=== PATIENT | male | born 1990 | race African-American/Black ===

== ENCOUNTER 2018-06-28 12:15 | Emergency (ER) | payer SELFPAY ==
[~2018-06-28] VITALS: Ht 170.2 cm; Wt 81.6 kg
[2018-06-28] MEDS ORDERED: PREDNISONE20 MG ORAL (12:38)
[2018-06-28] MEDS ORDERED: ALBUTEROL SULF8.5 GM INH (12:38)
--- NOTE | 2018-06-28 12:39 | Emergency Room Report ---
History of Present Illness General Chief Complaint: Upper Respiratory Illness Source: Patient Present Illness HPI 28-year-old male patient presents ER complaining of cough and wheezing times one day. Reports cough with sputum, denies hemoptysis. Reports wheezing during this time. Reports history of bronchitis, denies history of asthma. Reports that he has moved here from [place] 2 months ago, states that he had a breathing machine but did not bring it with him. Denies use of inhaler. Denies other acute symptoms. Denies fever, chest pain, shortness of breath, sore throat, abdominal pain. Denies vomiting. Denies smoking cigarettes. Allergies: Uncoded Allergies: PEANUT (Allergy, Unknown, 06/28/18) Patient History Past Medical History: see triage record Reviewed Nursing Documentation: PMH: Agreed; PSxH: Agreed Nursing Documentation-PMH Past Medical History: No History, Except For Review of Systems All Other Systems: negative except mentioned in HPI Physical Exam Vital Signs Date Time Temp Pulse Resp B/P (MAP) Pulse Ox O2 Delivery O2 Flow Rate FiO2 06/28/18 12:25 98.6 74 16 131/92 97 Room Air 98.6 Sp02 EP Interpretation: reviewed, normal General Appearance: well appearing, no apparent distress, alert, GCS 15, non- toxic Head: normocephalic, atraumatic Eyes: bilateral eye normal inspection, bilateral eye PERRL ENT: hearing grossly normal, normal pharynx, no angioedema, normal voice, TMs + canals normal, uvula midline, moist mucus membranes Neck: full range of motion Respiratory: lungs clear, normal breath sounds, no rhonchi, no respiratory distress, no accessory muscle use, speaking full sentences, wheezing Cardiovascular #1: regular rate, rhythm, no edema Musculoskeletal: back normal, digits/nails normal, gait/station normal, normal range of motion, non-tender Neurologic: alert, oriented x3, responsive, motor strength/tone normal, sensory intact Psychiatric: mood/affect normal Skin: no rash Lymphatic: no adenopathy Medical Decision Making PA Attestation Dr. Mcconnell is my supervising Physician whom patient management has been discussed with. Diagnostic Impression: Primary Impression: Bronchitis ER Course Pt presents to ED c/o cough and wheezing. DDX considered but are not limited to asthma, viral URI, bronchitis, pneumonia. Lungs show no rhonchi or rales, patient afebrile, suspicion for pneumonia at this time, does not require x-rays or imaging. no signs of hypoxia, patient without difficulty. VITAL SIGNS are WNL, patient is afebrile. Ordered breathing treatment and medication. ER COURSE Patient provided with prednisone. Albuterol/Atrovent breathing treatment provided. Following treatment patient states no longer having difficulty with breathing. Patient is resting comfortably in no acute distress. patient ok for discharge to home. ER precautions given. DISCHARGE: -Rx given for Prednisone. begin taking medication tomorrow, first dose provided in the ER. -Rx provided for Albuterol MDI. At this time pt is stable for d/c to home. Patient is resting comfortably in no acute distress, nontoxic appearing, able to answer questions without difficulty. Patient to take medications as instructed Will provide with patient care instructions and any necessary prescriptions. Care plan and follow-up instructions provided. Patient instructed to follow-up with primary care provider in 3 - 5 days. Patient questions asked and answered. Patient reports understanding and agreement to treatment plan. ER precautions given. Patient instructed to return to ER immediately for any new or worsening of symptoms including but not limited to increasing SOB, persistent fever. - Please note that this Emergency Department Report was dictated using [employer] technology software, occasionally this can lead to erroneous entry secondary to interpretation by the dictation equipment. Last Vital Signs Date Time Temp Pulse Resp B/P (MAP) Pulse Ox O2 Delivery O2 Flow Rate FiO2 06/28/18 12:25 98.6 74 16 131/92 97 Room Air 98.6 Status: improved Disposition: HOME, SELF-CARE Condition: Stable Scripts Albuterol Sulfate* (ALBUTEROL SULFATE MDI*) 8.5 Gm Hfa.aer.ad 2 PUFF INH Q6H, #1 INH 0 Refills Prov: Merlin Thomas 06/28/18 Prednisone* (PREDNISONE*) 20 Mg Tablet 40 MG ORAL DAILY for 4 Days, #8 TAB Prov: Merlin Thomas 06/28/18 Patient Instructions: Acute Bronchitis, [id number] Additional Instructions: Followup with primary care provider in 3 -5 days. Discuss need for further treatment and referral for breathing symptoms. Take medications as directed. OTC cough medications for cough symptoms as needed. Patient questions asked and answered. ER precautions given, patient instructed to return to ER immediately for any new or worsening of symptoms. Merlin Thomas Jun 28, 2018 12:39
[2018-06-28 12:43] VITALS: BP 131/92
[2018-06-28 12:45] VITALS: BP 131/92
[2018-06-28] MEDS ORDERED: Albuterol/Ipratropium 3ml neb HHN ONE (12:45)
== END 2018-06-28 12:45 | disposition home or self-care (01) ==
LOC: EMR 12:45
DX: J40 Bronchitis, not specified as acute or chronic (principal); Z91.010 Allergy to peanuts
CPT/HCPCS: 94664; 99284; J7512; J7620

== ENCOUNTER 2018-12-29 11:10 | Emergency (ER) | payer SELFPAY ==
[~2018-12-29] VITALS: Ht 170.2 cm; Wt 77.1 kg
[~2018-12-29 11:10] MED LIST: ALBUTEROL SULF8.5 GM INH; PREDNISONE20 MG ORAL
[2018-12-29] MEDS ORDERED: NKM (11:19)
[2018-12-29 11:23] VITALS: BP 130/85
--- NOTE | 2018-12-29 11:23 | NUR ---
ED Nurse Note: Pt present at ER c/o flu like symptoms. pt aao x4 and skin clean and intact. crossed eyes noted but without discoloration or drainage. Mild wheezing noted on all lungs bilaterally. pt denied pain but sinus depression.
[2018-12-29] MEDS ORDERED: ZYRTEC10 MG ORAL (11:37)
[2018-12-29] MEDS ORDERED: ALBUTEROL SULF8.5 GM INH (11:37)
[2018-12-29] MEDS ORDERED: FLONASE ALLERG9.9 ML NS (11:37)
[2018-12-29] MEDS ORDERED: PREDNISONE20 MG ORAL (11:37)
--- NOTE | 2018-12-29 11:37 | Emergency Room Report ---
History of Present Illness General Chief Complaint: Flu Like Symptoms Source: Patient Present Illness HPI 19-year-old male presents with urinary symptoms for 1 week. Says he has nasal congestion, sinus pressure, and some intermittent wheezing that is worse at night. She is a second Afrin and was initially having improvement of symptoms however left is no longer working. He has no other physicals at this time. Denies any current n/v/f/c/d, abd pain, back pain, neck pain, photophobia, phonophobia, CP, SOB or headache. Allergies: Uncoded Allergies: PEANUT (Allergy, Unknown, 06/28/18) Patient History Past Medical History: see triage record Past Surgical History: none Pertinent Family History: none Reviewed Nursing Documentation: PMH: Agreed; PSxH: Agreed Nursing Documentation-PMH Past Medical History: No History, Except For Review of Systems All Other Systems: negative except mentioned in HPI Physical Exam Vital Signs Date Time Temp Pulse Resp B/P (MAP) Pulse Ox O2 Delivery O2 Flow Rate FiO2 12/29/18 11:16 97.9 72 16 130/85 97 Room Air Sp02 EP Interpretation: reviewed, normal General Appearance: no apparent distress, alert, GCS 15, non-toxic Head: normocephalic, atraumatic Eyes: bilateral eye normal inspection, bilateral eye PERRL ENT: hearing grossly normal, normal pharynx, no angioedema, normal voice, TMs + canals normal Neck: full range of motion, supple/symm/no masses Respiratory: chest non-tender, lungs clear, normal breath sounds, speaking full sentences Cardiovascular #1: regular rate, rhythm, no edema Musculoskeletal: digits/nails normal, gait/station normal Neurologic: alert, oriented x3, responsive, motor strength/tone normal, sensory intact, speech normal Psychiatric: judgement/insight normal, memory normal, mood/affect normal, no suicidal/homicidal ideation Skin: normal color, no rash, warm/dry, well hydrated Medical Decision Making PA Attestation Dr. Graves my supervising physician with whom patient management has been discussed with. Diagnostic Impression: Primary Impression: Viral respiratory infection ER Course 28-year-old male with URI symptoms. On exam and history of nasal red and swollen he is got no sinus tenderness. I doubt that he has pneumonia although he does have intermittent wheezing his O2 sats are within normal and there is no egophony or rhonchi. His pharynx is within normal limits and shows no signs of hypoxia. He has no fever body aches or chills. He is afebrile. At this time the patient appears stable for discharge home without any emergent exam findings. Will provide printed patient care instructions, and any necessary prescriptions. Care plan and follow up instructions have been discussed with the patient prior to discharge. Last Vital Signs Date Time Temp Pulse Resp B/P (MAP) Pulse Ox O2 Delivery O2 Flow Rate FiO2 12/29/18 11:16 97.9 72 16 130/85 97 Room Air Status: unchanged Disposition: HOME, SELF-CARE Condition: Stable Scripts Cetirizine Hcl* (ZYRTEC*) 10 Mg Tablet 10 MG ORAL DAILY, #14 TAB 0 Refills Prov: Dara Pierce 12/29/18 Prednisone* (PREDNISONE*) 20 Mg Tablet 20 MG ORAL DAILY for 5 Days, #5 TAB Prov: Dara Pierce 12/29/18 Fluticasone Propionate (Flonase Allergy Relief) 9.9 Ml [place].susp 2 SPRAYS NS DAILY for 7 Days, #10 ML Prov: Dara Pierce 12/29/18 Albuterol Sulfate* (ALBUTEROL SULFATE MDI*) 8.5 Gm Hfa.aer.ad 2 PUFF INH Q4H, #1 INH 0 Refills Prov: Dara Pierce 12/29/18 Patient Instructions: Sinusitis, Adult, Viral Respiratory Infection Additional Instructions: Take medication as directed. Drink plenty of fluids which include Gatorade and water. Get plenty of rest. Avoid taking medications on an empty stomach. If you have cough avoid dairy and cold beverages. If you have a fever, headache or body aches please take [id number] tylenol/motrin/advil unless a prescription for these symptoms have been given. If your symptoms are worsening or you have shortness or breath, severe headaches or chest pain, please call 911 or go to the ER. Dara Pierce Dec 29, 2018 11:37
[2018-12-29] MEDS ORDERED: Albuterol ud Inhalation HHN ONE (12:00)
[2018-12-29 12:20] VITALS: BP 130/85
--- NOTE | 2018-12-29 12:20 | NUR ---
ER DISCHARGE NOTE: Patient is cleared to be discharged per ERMD after breathing treatment, pt is aox4, on room air, with stable vital signs. pt was given dc and prescription instructions, pt was able to verbalize understanding, pt id band removed. pt is able to ambulate with steady gait. pt took all belongings.
== END 2018-12-29 12:20 | disposition home or self-care (01) ==
LOC: EMR 11:33
DX: J06.9 Acute upper respiratory infection, unspecified (principal); B34.9 Viral infection, unspecified; Z91.010 Allergy to peanuts
CPT/HCPCS: 94640; 99284